=== PATIENT | male | born 1965 | race Caucasian/White ===

== ENCOUNTER → 2016-12-26 | Outpatient (CLI) | payer OTHER | END | disposition home or self-care (01) | LOC: LAB.O 08:22 | PROVIDERS: ATTEND Internal Medicine Sports Medicine | DX: M45.3 Ankylosing spondylitis of cervicothoracic region (principal); Z79.899 Other long term (current) drug therapy; Z01.89 Encounter for other specified special examinations ==

== ENCOUNTER → 2017-11-22 | Outpatient (CLI) | payer BC, OTHER ==
--- NOTE | 2017-11-25 07:54 | US ---
EXAM DESCRIPTION: Liver CLINICAL HISTORY: 52 years Male, ELEVATED LIVER ENZYMES COMPARISON: None. FINDINGS: Right upper quadrant sonography demonstrates liver size in the upper range of normal at 15.6 cm without focal cystic or solid masses or evidence of ascites. Hepatopetal flow with a 9 mm patent portal vein is noted. The gallbladder is normally distended without stones or wall thickening or edema. No intrahepatic ductal dilation is noted and the common duct is 5 mm in diameter. The region of the pancreas is grossly unremarkable without cystic or solid mass. Right kidney is 11.4 cm in length without cyst or mass or obstruction or hydronephrosis. IMPRESSION: Normal right upper quadrant sonography. Electronically signed by: Obie Patricio MD 11/25/2017 7:53 AM [employer]
== END ==
LOC: US 08:04
PROVIDERS: ATTEND Internal Medicine Sports Medicine
DX: R79.89 Other specified abnormal findings of blood chemistry (principal)

== ENCOUNTER → 2019-07-31 | Outpatient (CLI) | payer BC, OTHER | LOC: GMAE 12:07 | PROVIDERS: ATTEND Family Medicine | DX: M06.9 Rheumatoid arthritis, unspecified (principal) ==

== ENCOUNTER → 2020-06-06 | Outpatient (CLI) | payer BC | LOC: LAB.O 13:25 | PROVIDERS: ATTEND Internal Medicine Sports Medicine | DX: Z79.899 Other long term (current) drug therapy (principal); M35.2 Behcet's disease ==